=== PATIENT | female | born 1980 | race Caucasian/White ===

== ENCOUNTER 2016-08-11 17:29 | Emergency (ER) | payer BC ==
[2016-08-11 17:45] VITALS: BP 137/99; PULSE 98; TEMP 98.1; BMI 34.9
[2016-08-11] MEDS ORDERED: LIDOCAINE HCL 1%, 10 MG/ML (50 mL VIAL) SQ ONE (18:11)
[2016-08-11] MEDS ORDERED: LIDOCAINE HCL 1%, 10 MG/ML (20ML VIAL) ONE (18:15)
--- NOTE | 2016-08-11 18:38 | PDOC ---
History of Present Illness - History of Present Illness Initial Comments: 08/11/16 18:44 Patient is a 36 year old female (22 weeks) who is presenting to the ED for left toe injury. Today the patient was wearing sandals when she stubbed her first toe against a shopping cart. The patient reports an abrasion to her toe that began bleeding and has not stopped since. She also notes that the skin color around the injured area has darkened. The patient cleaned the wound and wrapped it in a bandage. She came to the ED today for continuous bleeding. NKDA. <Shaina Golden - Last Filed: 08/11/16 18:47> - General History Source: Patient Exam Limitations: No Limitations <Sudeep Rivas - Last Filed: 08/11/16 19:08> - General Chief Complaint: Injury Stated Complaint: left first toe injury Time Seen by Provider: 08/11/16 17:33 Past History <Shaina Golden - Last Filed: 08/11/16 18:47> - Past Medical History Other medical history: 5 months - Psycho/Social/Smoking Cessation Hx Anxiety: No Suicidal Ideation: No Smoking History: Never smoked Have you smoked in the past 12 months: No Information on smoking cessation initiated: No Hx Alcohol Use: No Drug/Substance Use Hx: No Substance Use Type: None <Sudeep Rivas - Last Filed: 08/11/16 19:08> - Past Medical History Allergies/Adverse Reactions: Allergies Allergy/AdvReac Type Severity Reaction Status Date / Time No Known Allergies Allergy Verified 08/11/16 17:30 Home Medications: Ambulatory Orders NK [No Known Home Medication] 08/11/16 Review of Systems - Review of Systems Comments:: 08/11/16 18:44 GENERAL/CONSTITUTIONAL: No fever or chills. No weakness. HEAD, EYES, EARS, NOSE AND THROAT: No change in vision. No ear pain or discharge. No sore throat. CARDIOVASCULAR: No chest pain or shortness of breath. RESPIRATORY: No cough, wheezing, or hemoptysis. GASTROINTESTINAL: No nausea, vomiting, diarrhea or constipation. GENITOURINARY: No dysuria, frequency, or change in urination. MUSCULOSKELETAL: No joint or muscle swelling or pain. No neck or back pain. EXTREMITIES: Abrasion with bleeding and skin color change to the left first toe. SKIN: No rash NEUROLOGIC: No headache, vertigo, loss of consciousness, or change in strength/ sensation. <Shaina Golden - Last Filed: 08/11/16 18:47> *Physical Exam - Vital Signs Last Vital Signs Temp Pulse Resp BP Pulse Ox 98.1 F 98 H 20 137/99 99 08/11/16 17:29 08/11/16 17:29 08/11/16 17:29 08/11/16 17:29 08/11/16 17:29 - Physical Exam Comments: 08/11/16 18:45 GENERAL: Awake, alert, and fully oriented, in no acute distress HEAD: No signs of trauma EYES: PERRLA, EOMI, sclera anicteric, conjunctiva clear ENT: Auricles normal inspection, hearing grossly normal, nares patent, oropharynx clear without exudates. Moist mucosa NECK: Normal ROM, supple, no lymphadenopathy, JVD, or masses LUNGS: Breath sounds equal, clear to auscultation bilaterally. No wheezes, and no crackles HEART: Regular rate and rhythm, normal S1 and S2, no murmurs, rubs or gallops ABDOMEN: Soft, nontender, normoactive bowel sounds. No guarding, no rebound. No masses EXTREMITIES: Subungal hematoma of the first digit of the left foot, no tenderness, no bony point tenderness, small superficial abrasion to the medial first toe. Normal range of motion, no edema. No clubbing or cyanosis. No cords NEUROLOGICAL: Cranial nerves II through XII grossly intact. Normal speech, normal gait SKIN: Warm, Dry, normal turgor, no rashes or lesions noted. ENDOCRINE: No increased thirst. No abnormal weight change. HEMATOLOGIC/LYMPHATIC: No anemia, easy bleeding, or history of blood clots. ALLERGIC/IMMUNOLOGIC: No hives or skin allergy. <Shaina Golden - Last Filed: 08/11/16 18:47> - Vital Signs Last Vital Signs Temp Pulse Resp BP Pulse Ox 98.1 F 98 H 20 137/99 99 08/11/16 17:29 08/11/16 17:29 08/11/16 17:29 08/11/16 17:29 08/11/16 17:29 <Sudeep Rivas - Last Filed: 08/11/16 19:08> Procedures - Nail Trephination Nail Trephination Location: 1st right toe Method of Drainage: 18 gauge needle Finger Splint: No <Sudeep Rivas - Last Filed: 08/11/16 19:08> Medical Decision Making - Medical Decision Making 08/11/16 19:03 A portion of this note was documented by scribe services under my direction. I have reviewed the details of the note, within reason, and agree with the documentation with the following case summary and management plan written by me. Patient treated in the ED. Nursing notes are reviewed and incorporated into the medical decision-making. Vital signs reviewed. Peripheral IV access obtained by the nurse, laboratory studies are drawn and sent, reviewed and interpreted by myself. Vital Signs Temp Pulse Resp BP Pulse Ox 98.1 F 98 H 20 137/99 99 08/11/16 17:29 08/11/16 17:29 08/11/16 17:29 08/11/16 17:29 08/11/16 17:29 36-year-old female approximately 22 weeks presents with first toe right foot subungual hematoma. Patient had actually stubbed her toe on the wall. She started developing subungual hematoma. She has small abrasion to the medial side of her toe. Denies bony tenderness. I have little to no suspicion for a fracture. However, patient several hematoma need to be dealt with. Lidocaine 1% without epinephrine was given for local digital block. This is a category B drug. The wound was soaked for approximately 30 minutes in a Betadine solution with normal saline. With approximately 4 mL of lidocaine, patient's toe was anesthetized. With an 18- gauge needle, the seminal hematoma successfully evacuated. Patient's wound was covered with gauze and wrapped in Kerlix. Wound precautions were given. Patient verbalizes understanding agrees with plan. I discussed the physical exam findings, ancillary test results and final diagnoses with the patient. I answered all of the patient's questions. The patient was satisfied with the care received and felt comfortable with the discharge plan and treatment plan. The patient will call their primary care physician within 24 hours to arrange follow-up and will return to the Emergency Department with any new, persistant or worsening symptoms. <Sudeep Rivas - Last Filed: 08/11/16 19:08> *DC/Admit/Observation/Transfer - Attestations Scribe Attestion: 08/11/16 18:46 Documentation prepared by Shaina Golden, acting as medical art therapist for Sudeep Rivas MD. <Shaina Golden - Last Filed: 08/11/16 18:47> - Discharge Dispostion Admit: No <Sudeep Rivas - Last Filed: 08/11/16 19:08> Diagnosis at time of Disposition: Subungual hematoma - Discharge Dispostion Disposition: HOME Condition at time of disposition: Improved - Patient Instructions Additional Instructions: You have had a subungal hematoma drained. Please elevate the foot as much as you can. Take 650 mg tylenol every 4 hours as needed for pain. You may start washing your toe starting tomorrow. If you notice any redness, fever, or pus at the toe, please return to the ER for further evaluation.
== END 2016-08-11 19:16 | disposition home or self-care (01) ==
LOC: FER 17:29
PROC: 0H9RXZZ Drainage of Toe Nail, External Approach (ICD-10-PCS; principal; 2016-08-11)
DX: O26.892 Other specified pregnancy related conditions, second trimester (principal); S90.111A Contusion of right great toe without damage to nail, initial encounter; W22.8XXA Striking against or struck by other objects, initial encounter; Y93.9 Activity, unspecified; Y92.9 Unspecified place or not applicable
CPT/HCPCS: 99282-25

== ENCOUNTER 2016-11-30 11:39 | Inpatient (IN) | payer BC ==
[2016-11-30] MEDS: ELECTROLYTE-148 SOLN 1,000 ML IV SCH ×2 (11:39→18:12)
[2016-11-30] MEDS ORDERED: TUBERCULIN PPD 5 TU/0.1ML SYRINGE (IN PATIENT USE ONLY) ID ONE (12:04)
[2016-11-30 12:23] VITALS: BMI 36.7
[2016-11-30 12:35] LABS: BASOPHIL 0.6 % (0-2.0); EOSINOPHIL 0.4 % (0-4.5); MCH 26.2 pg (25.7-33.7); MCHC 32.7 g/dl (32.0-36.0); MEAN CELL VOLUME 80.2 fl (80-96); MEAN PLT VOLUME 7.9 fl (7.5-11.1); NEUTROPHILS 72.6 % (42.8-82.8); PLATELET COUNT 245 K/MM3 (134-434); RDW 13.7 % (11.6-15.6); WHITE BLOOD COUNT 7.8 K/mm3 (4.0-10.0)
[2016-11-30 12:40] LABS: URINE APPEARANCE CLOUDY; URINE BILIRUBIN NEGATIVE (NEGATIVE); URINE COLOR YELLOW; URINE GLUCOSE (UA) NEGATIVE (NEGATIVE); URINE KETONE NEGATIVE (NEGATIVE); URINE NITRITE NEGATIVE (NEGATIVE); URINE UROBILINOGEN NEGATIVE E.U./dl (0.2-1.0)
[2016-11-30 12:41] LABS: URINE BLOOD 1+ (NEGATIVE); URINE LEUK ESTERASE 2+ (NEGATIVE); URINE PROTEIN 2+ (NEGATIVE)
[2016-11-30 12:48] LABS: INR 0.85 (0.82-1.09); PROTHROMBIN TIME (PATIENT) 9.3 SEC (9.98-11.88)
[2016-11-30 12:49] LABS: URINE BACTERIA RARE /hpf (NONE SEEN); URINE MUCUS RARE; URINE RBC 106 /hpf (0-3); URINE WBC 51 /hpf (3-5); YEAST FEW
[2016-11-30 12:51] LABS: ACTIVATED PTT 26.9 SECONDS (26.9-34.4)
[2016-11-30 13:03] LABS: CALCIUM 8.5 mg/dL (8.5-10.1); COCKROFT - GAULT 206.6095; CREATININE 0.5 mg/dL (0.55-1.02)
[2016-11-30 13:41] LABS: URIC ACID 3.3 mg/dL (2.6-7.2)
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
[2016-11-30] MEDS ORDERED: OXYTOCIN 15 UNITS/ LR 250 ML 250 ML IVPB SCH (15:30)
[2016-11-30] MEDS ORDERED: BUTORPHANOL TARTRATE 1 MG/ML VIAL IVPB ONE (16:45)
[2016-11-30 19:16] LABS: ARTERIAL BLD GAS O2 SATURATION 68.6 % (90-98.9); ARTERIAL BLOOD GAS BASE EXCESS 1.1 meq/l (-2-2); ARTERIAL BLOOD GAS HCO3 26.7 meq/L (22-26); ARTERIAL BLOOD GAS PO2 31.5 mmHg (80-100); ARTERIAL BLOOD GAS pH 7.37 (7.35-7.45)
[2016-11-30] MEDS ORDERED: ACETAMINOPHEN 325 MG TABLET (FP) PO PRN (20:19)
[2016-11-30] MEDS ORDERED: ONDANSETRON 4 MG/2 ML VIAL IVPB PRN (20:19)
[2016-11-30] MEDS ORDERED: IBUPROFEN 600 MG TABLET (FP) PO PRN ×3 (20:19→20:33)
--- NOTE | 2016-11-30 20:27 | PN ---
Delivery - Delivery Section: Primary Type of Anesthesia: Epidural EBL (cc): 500 Delivery, Single - Stages of Labor Date 1st Stage Initiatied: 11/30/16 Date of Delivery: 11/30/16 Time of Delivery: 18:58 Date Placenta Delivered: 11/30/16 Time Placenta Delivered: 18:59 Placenta: Yes: Expressed - Condition of Infant Pipeline Construction Inspector/Innovation Analyst Present: Yes Infant Gender: Male Position: Right, OT - [place] Feeding Plan Initial Plan: Elected not to breastfeed exclusively throughout hospitalization Benefits of Exclusively reinforced: Yes Remarks - Remarks Remarks: After patient underwent epidural heart rate decelerated to 80-90s noted at 18:34 Patient was urged to OR at 18:50 for Stat c/s Skin Incision was made at 18:55 baby was delivered at 18:58 Placenta delivered at 18:59 Pediatricians present, APGARs 9/9, weight 5.5lb Cord around the neck x 2, tight EBL 500cc Fluids 1200cc UO 50cc
[2016-11-30] MEDS ORDERED: oxyCODONE HCL 5 MG TABLET PO PRN ×2 (20:33)
[2016-11-30] MEDS ORDERED: IBUPROFEN 800 MG/8 ML IJ IVPB PRN (20:33)
[2016-11-30] MEDS ORDERED: SIMETHICONE 80 MG TAB.CHEW (FP) PO PRN ×2 (20:33)
[2016-11-30] MEDS ORDERED: BENZOCAINE 28 GM HEMORRHOIDAL OINTMENT PR PRN (20:33)
[2016-11-30] MEDS ORDERED: METHYLERGONOVINE MALEATE 0.2 MG/1 ML AMP IM PRN ×2 (20:33)
[2016-11-30] MEDS ORDERED: BENZOCAINE 20% 57 GM BOTTLE TP PRN (20:33)
[2016-11-30] MEDS ORDERED: WITCH HAZEL 50% (TUCKS) 40 PAD/JAR PAD TP PRN (20:33)
[2016-11-30] MEDS ORDERED: DEXTROSE 5%-LACTATED RINGERS 1,000 ML IV SCH (20:45)
[2016-11-30] MEDS ORDERED: OXYTOCIN 20 UNITS in 0.9% NS 1,000 ML IV SCH (20:45)
[2016-11-30] MEDS: CLINDAMYCIN 600MG PREMIX IVPB 50 ML IVPB SCH (21:15)
[2016-11-30] MEDS: GENTAMICIN 80 MG PREMIXED IVPB 100 ML IVPB SCH (22:00)
[2016-12-01] MEDS ORDERED: CEFAZOLIN 1 GM/D5W 50 ML IVPB SCH (02:00)
[2016-12-01] MEDS: CEFAZOLIN 2 GM/D5W 50 ML IVPB SCH ×3 (03:00→18:15)
[2016-12-01] MEDS ORDERED: SIMETHICONE 40 MG/0.6 ML BOTTLE PO PRN (03:41)
[2016-12-01] MEDS: CLINDAMYCIN 600MG PREMIX IVPB 50 ML IVPB SCH ×2 (04:46→12:42)
[2016-12-01] MEDS: GENTAMICIN 80 MG PREMIXED IVPB 100 ML IVPB SCH ×3 (05:45→21:27)
--- NOTE | 2016-12-01 07:14 | PN ---
Post Progress Note - Subjective Subjective: 36 yo P1 now s/p stat c/section, no complains, pain well controlled Post Day: 1 Type of Delivery: Primary C/S Vital Signs: Vital Signs Temperature 97.6 F 12/01/16 05:50 Pulse Rate 88 12/01/16 05:50 Respiratory Rate 20 12/01/16 06:00 Blood Pressure 121/79 12/01/16 05:50 O2 Sat by Pulse Oximetry (%) 98 11/30/16 20:25 Breast Exam: Yes: Soft Uterus: Yes: Fundus Firm Incision: Yes: Dressing dry and intact Abdomen/GI: Yes: Abdomen soft Lochia: Yes: Rubra Lochia, amount: Small Perineum: Yes: Intact Activity: Other (in bed) - Labs Labs: CBC WBC 7.8 K/mm3 (4.0-10.0) 11/30/16 12:24 RBC 4.31 M/mm3 (3.60-5.2) 11/30/16 12:24 Hgb 11.3 GM/dL (10.7-15.3) 11/30/16 12:24 Hct 34.5 % (32.4-45.2) 11/30/16 12:24 MCV 80.2 fl (80-96) 11/30/16 12:24 MCHC 32.7 g/dl (32.0-36.0) 11/30/16 12:24 RDW 13.7 % (11.6-15.6) 11/30/16 12:24 Plt Count 245 K/MM3 (134-434) 11/30/16 12:24 MPV 7.9 fl (7.5-11.1) 11/30/16 12:24 Neutrophils % 72.6 % (42.8-82.8) 11/30/16 12:24 Lymphocytes % 19.0 % (8-40) 11/30/16 12:24 Monocytes % 7.4 % (3.8-10.2) 11/30/16 12:24 Eosinophils % 0.4 % (0-4.5) 11/30/16 12:24 Basophils % 0.6 % (0-2.0) 11/30/16 12:24 Retic Count 1.48 % (0.5-1.5) 11/30/16 12:24 Assessment/Plan 36 yo P1 s/p Stat c/section for NRFHR VSS, Afibrile adequate Urine output follow labs today Encourage Out of bed cont routine post care Baby boy for Circumcision
[2016-12-01] MEDS: ACETAMINOPHEN 650 MG/20.3 ML ORAL SOLUTION (CUPS) PO PRN ×3 (07:54→21:27)
[2016-12-01] MEDS: IBUPROFEN 100 MG/5 ML UNIT DOSE CUPS PO PRN ×3 (07:55→21:27)
[2016-12-01] MEDS: PRENATAL VITAMINS W/ FOLIC ACID TABLET (FP) PO SCH (10:16)
--- NOTE | 2016-12-01 13:52 | PN ---
Progress Note (short form) - Note Progress Note: Anesthesia postop note 36 y/o F s/p spinal anesthesia for c/s, duramorph for postop pain management POD#1, vss, no complaints, pain well controlled, ambulating. No anesthesia complications.
--- NOTE | 2016-12-01 15:42 | OP ---
DATE OF OPERATION: PROCEDURE: STAT primary low-segment transverse . PREOPERATIVE DIAGNOSIS: 1. 36-year-old para 0 at 37 weeks with ruptured membranes, undergoing induction of labor with non-reassuring heart rate. POSTOPERATIVE DIAGNOSIS:. 1. 36-year-old para 0 at 37 weeks with ruptured membranes, undergoing induction of labor with non-reassuring heart rate. 2. Tight cord around the neck x 2. SURGEON: Arianna Villasenor MD. TORCH STRAIGHTENER AND HEATER: Michelle Jackson MD. DESCRIPTION OF THE OPERATIVE PROCEDURE: After patient underwent epidural anesthesia, the heart rate deceleration to 80s and 90s were noted at 1834 [employer] time, and heart rate was not recovering, so patient was urged to the operating room with patient's consent at 1854 STAT . A skin incision was made at 1855. Baby was delivered via Pfannenstiel skin incision and lower segment transverse uterine incision at 1858. Placenta was delivered at 1859. Pediatricians were present. Very tight cord around the neck x 2 was noted. Apgars were 9 and 9. Baby weighed 5 pounds, 5 ounces. Subsequently, uterus was cleared of clots and debris, and a uterine incision was repaired with 0 Biosyn with running locking suture and subsequently imbricating suture. Abdomen was cleared of clots and debris. Excellent uterine hemostasis was noted, and uterus was closed with 0 Biosyn in running fashion. The muscle was reapproximated in the midline. The fascia was closed with 0 Vicryl in running fashion. The subcutaneous was reapproximated with 2-0 Chromic, and skin was closed with 3-0 Biosyn. Estimated blood loss was 500 mL. Patient received 1200 mL of fluid. Urine output was 50 mL. Instrument/sponge count was correct x 2. Patient was brought to the recovery room in stable condition. Ophelia [id number] MTDD
[2016-12-01] MEDS: ELECTROLYTE-148 SOLN 1,000 ML IV SCH (18:15)
[2016-12-01] MEDS ORDERED: BISACODYL 10 MG SUPP.RECT PR PRN (20:34)
[2016-12-01] MEDS ORDERED: BISACODYL 10 MG SUPP.RECT RC PRN (20:34)
[2016-12-02] MEDS: CEFAZOLIN 2 GM/D5W 50 ML IVPB SCH ×2 (02:34→10:09)
[2016-12-02] MEDS: GENTAMICIN 80 MG PREMIXED IVPB 100 ML IVPB SCH (05:41)
[2016-12-02] MEDS: IBUPROFEN 100 MG/5 ML UNIT DOSE CUPS PO PRN ×3 (07:28→21:49)
[2016-12-02] MEDS: ACETAMINOPHEN 650 MG/20.3 ML ORAL SOLUTION (CUPS) PO PRN ×3 (07:28→21:50)
[2016-12-02 12:45] LABS: BASOPHIL 0.5 % (0-2.0); EOSINOPHIL 0.9 % (0-4.5); MCH 26.8 pg (25.7-33.7); MEAN PLT VOLUME 8.3 fl (7.5-11.1); NEUTROPHILS 78.7 % (42.8-82.8); PLATELET COUNT 235 K/MM3 (134-434); RDW 14.4 % (11.6-15.6); WHITE BLOOD COUNT 8.3 K/mm3 (4.0-10.0)
[2016-12-02] MEDS: PRENATAL VITAMINS W/ FOLIC ACID TABLET (FP) PO SCH (13:21)
--- NOTE | 2016-12-02 15:30 | PN ---
Post Progress Note - Subjective Subjective: 36 yo P0 s/p Stat c/section feels well, pain controlled, voiding, ambulating, eating regular diet, +flatus Denies Headache, visual changes Post Day: 2 Type of Delivery: Primary C/S Vital Signs: Vital Signs Temperature 98.7 F 12/02/16 10:00 Pulse Rate 87 12/02/16 10:00 Respiratory Rate 20 12/02/16 10:00 Blood Pressure 126/76 12/02/16 10:00 O2 Sat by Pulse Oximetry (%) 98 11/30/16 20:25 Breast Exam: Yes: Soft (not breast feeding) Uterus: Yes: Fundus Firm Incision: Yes: Sutures intact Abdomen/GI: Yes: Abdomen soft Lochia: Yes: Rubra Lochia, amount: Small Perineum: Yes: Intact Activity: Ambulating - Labs Labs: CBC WBC 8.3 K/mm3 (4.0-10.0) 12/02/16 12:05 RBC 3.91 M/mm3 (3.60-5.2) 12/02/16 12:05 Hgb 10.5 GM/dL (10.7-15.3) L 12/02/16 12:05 Hct 31.7 % (32.4-45.2) L 12/02/16 12:05 MCV 81.0 fl (80-96) 12/02/16 12:05 MCHC 33.0 g/dl (32.0-36.0) 12/02/16 12:05 RDW 14.4 % (11.6-15.6) 12/02/16 12:05 Plt Count 235 K/MM3 (134-434) 12/02/16 12:05 MPV 8.3 fl (7.5-11.1) 12/02/16 12:05 Neutrophils % 78.7 % (42.8-82.8) 12/02/16 12:05 Lymphocytes % 13.5 % (8-40) D 12/02/16 12:05 Monocytes % 6.4 % (3.8-10.2) 12/02/16 12:05 Eosinophils % 0.9 % (0-4.5) D 12/02/16 12:05 Basophils % 0.5 % (0-2.0) 12/02/16 12:05 Retic Count 1.48 % (0.5-1.5) 11/30/16 12:24 Haptoglobin 156 mg/dL (34-200) 11/30/16 12:24 Assessment/Plan 36 yo P1 s/p Stat c/section for NRFHR VSS, Afibrile adequate Urine output H/H stable BPs wnl Encourage Out of bed cont routine post care Rh pos, no need for RhoGam Baby boy circumcised Plan d/c 12/03/16
[2016-12-02] MEDS ORDERED: ENOXAPARIN NA (PORCINE) 40 MG/0.4 ML DISP.SYRIN SQ ONE (15:57)
[2016-12-02] MEDS: ENOXAPARIN NA (PORCINE) 40 MG/0.4 ML DISP.SYRIN SQ SCH (18:45)
[2016-12-02] MEDS ORDERED: SENNOSIDES/DOCUSATE COMBO (SENNA PLUS) TABLET (UD) PO PRN (22:00)
[2016-12-03] MEDS: ACETAMINOPHEN 650 MG/20.3 ML ORAL SOLUTION (CUPS) PO PRN ×3 (03:20→23:13)
[2016-12-03] MEDS: IBUPROFEN 100 MG/5 ML UNIT DOSE CUPS PO PRN ×4 (03:21→23:15)
[2016-12-03] MEDS: ENOXAPARIN NA (PORCINE) 40 MG/0.4 ML DISP.SYRIN SQ SCH (09:19)
[2016-12-03] MEDS: PRENATAL VITAMINS W/ FOLIC ACID TABLET (FP) PO SCH (09:19)
--- NOTE | 2016-12-03 15:15 | PATH ---
Surgical Pathology Report Patient Name: KRISTIN KING Med. Rec. #: [id number] /Age/Gender: 1980 (Age: 36) / F Account: [id number] Location: [facility] OBS/LICENSED DIRECT ENTRY MIDWIFE Taken: 11/30/2016 Received: 12/01/2016 Reported: 12/03/2016 Physicians: Arianna Villasenor M.D. Specimen(s) Received PLACENTA Clinical History , 2004-sx left shoulder Primary c/section-nonreassuring heart rate Final Diagnosis PLACENTA, DELIVERY: INTACT, SMALL (<400 GM), THIRD TRIMESTER PLACENTA WITH MILD PREVILLOUS, PERIVILLOUS, AND PRECHORIONIC FIBRIN DEPOSITION, THREE VESSEL UMBILICAL CORD, AND PLACENTAL MEMBRANES WITH FOCAL ACUTE CHORIOAMNIONITIS AND FOCAL AMNION HYPERPLASIA. Electronically Signed Justin Laws M.D. Gross Description The specimen is received fresh, labeled "placenta" and is a 229 gram, 13.5 x 11.5 x 1.3 cm placenta with attached membranes and umbilical cord. The attached membranes are dominique, translucent with focal opacities and insert marginally. The umbilical cord measures 12 cm in length and averages 0.9 cm in diameter. The cord inserts eccentrically, 1.5 cm to the nearest margin. No true knots or strictures are identified. Cut surface of the umbilical cord reveals 3 vessels. The surface is francisco-blue with fibrin deposition and appropriate caliber vessels. The maternal surface is red-brown and intact. Sectioning reveals red-brown, spongy parenchyma. No focal lesions are identified. Meter Reader Inspector sections are submitted in three cassettes as follows: 1- membrane rolls and umbilical cord; 2-3- full thickness sections of placenta. /12/02/2016 formerly [facility]12/02/2016
--- NOTE | 2016-12-03 17:12 | PN ---
Post Progress Note - Subjective Subjective: No complaints, some incisional pain, (+) flatus Post Day: 3 Type of Delivery: Primary C/S Vital Signs: Vital Signs Temperature 97.9 F 12/03/16 09:33 Pulse Rate 79 12/03/16 09:33 Respiratory Rate 18 12/03/16 09:33 Blood Pressure 140/90 12/03/16 09:33 O2 Sat by Pulse Oximetry (%) 98 11/30/16 20:25 Breast Exam: Yes: Soft Uterus: Yes: Fundus Firm, Fundus below umbilicus, Non-tender Incision: Yes: Sutures intact Abdomen/GI: Yes: Abdomen soft, Tolerating PO Lochia: Yes: Rubra Lochia, amount: Small Extremities: Yes: Calves non-tender, Edema Perineum: Yes: Intact Activity: Ambulating - Labs Labs: CBC WBC 8.3 K/mm3 (4.0-10.0) 12/02/16 12:05 RBC 3.91 M/mm3 (3.60-5.2) 12/02/16 12:05 Hgb 10.5 GM/dL (10.7-15.3) L 12/02/16 12:05 Hct 31.7 % (32.4-45.2) L 12/02/16 12:05 MCV 81.0 fl (80-96) 12/02/16 12:05 MCHC 33.0 g/dl (32.0-36.0) 12/02/16 12:05 RDW 14.4 % (11.6-15.6) 12/02/16 12:05 Plt Count 235 K/MM3 (134-434) 12/02/16 12:05 MPV 8.3 fl (7.5-11.1) 12/02/16 12:05 Neutrophils % 78.7 % (42.8-82.8) 12/02/16 12:05 Lymphocytes % 13.5 % (8-40) D 12/02/16 12:05 Monocytes % 6.4 % (3.8-10.2) 12/02/16 12:05 Eosinophils % 0.9 % (0-4.5) D 12/02/16 12:05 Basophils % 0.5 % (0-2.0) 12/02/16 12:05 Retic Count 1.48 % (0.5-1.5) 11/30/16 12:24 Haptoglobin 156 mg/dL (34-200) 11/30/16 12:24 Assessment/Plan 36yo P1 s/p primary LT C/S, doing well stable, afebrile. Mild elevation in BP noted. No s/sx of PEC. Will monitor care instructions reviewed. Continue routine postop care. Ambulation encouraged.
[2016-12-03] MEDS ORDERED: ACETAMINOPHEN 650 MG/20.3 ML ORAL SOLUTION (CUPS) PO ONE (18:30)
[2016-12-03] MEDS ORDERED: diphenhydrAMINE HCL 12.5 MG/5 ML UNIT-DOSE CUPS PO PRN (21:22)
[2016-12-04] MEDS: ACETAMINOPHEN 650 MG/20.3 ML ORAL SOLUTION (CUPS) PO PRN ×3 (06:09→20:09)
[2016-12-04] MEDS: IBUPROFEN 100 MG/5 ML UNIT DOSE CUPS PO PRN (06:10)
--- NOTE | 2016-12-04 09:15 | DS ---
Physical Exam-LAND RECLAMATION SPECIALIST Vital Signs: Vital Signs Temperature 98.2 F 12/03/16 22:00 Pulse Rate 80 12/04/16 05:39 Respiratory Rate 18 12/04/16 05:39 Blood Pressure 153/71 12/04/16 05:39 O2 Sat by Pulse Oximetry (%) 98 11/30/16 20:25 Constitutional: Yes: No Distress, Calm, Obese Eyes: Yes: WNL, Conjunctiva Clear HENT: Yes: WNL, Atraumatic, Normocephalic Neck: Yes: WNL, Supple, Trachea Midline Cardiovascular: Yes: WNL, Regular Rate and Rhythm Respiratory: Yes: WNL, Regular, CTA Bilaterally Gastrointestinal: Yes: WNL, Normal Bowel Sounds, Soft Renal/: Yes: WNL External Genitalia: Yes: Normal ....Post : Yes: Uterus firm, Uterus non-tender Breast(s): Yes: WNL Musculoskeletal: Yes: WNL Extremities: Yes: WNL Integumentary: Yes: WNL Wound/Incision: Yes: Clean/Dry, Well Approximated, Sutures Intact, Open to air Neurological: Yes: WNL, Alert, Oriented ...Motor Strength: WNL Psychiatric: Yes: WNL, Alert, Oriented Labs: CBC, BMP 12/02/16 12:05 11/30/16 12:24 Delivery - Delivery Section: Primary Type of Anesthesia: Epidural Episiotomy/Laceration: None EBL (cc): 500 Delivery, Single - Stages of Labor Date 1st Stage Initiatied: 11/30/16 Time 1st Stage Initiated: 11:00 Date of Delivery: 11/30/16 Time of Delivery: 18:58 Time Placenta Delivered: 18:59 Placenta: Yes: Expressed - Condition of Infant Camp Maintenance Supervisor/Pet Caregiver Present: Yes Infant Gender: Male Weight: 2.41 kg Position: Right, OT Total Hours ROM (Hrs/Mins): 8h 14m - 1 Minute Total Score: 9 5 Minutes Total Score: 9 - Feeding Plan Initial Plan: Elected not to breastfeed exclusively throughout hospitalization Benefits of Exclusively reinforced: Yes Remarks - Remarks Remarks: 36yo P1 s/p primary LT C/S, doing well stable, afebrile. Elevated BP noted. No s/sx of PEC. Will start on Procardia XL. care instructions reviewed. Continue routine postop care. Ambulation encouraged. Discharge Summary Reason For Visit: LABOR ASSES Current Active Problems delivery delivered (Acute) Condition: Good - Instructions Diet, Activity, Other Instructions: Physical activity Resume your normal everyday activity as tolerated no heavy lifting or exercise until seen by your surgeon. You may walk unlimited jelani of and climb stairs. You may resume driving the car when you feel safe and comfortable behind the wheel. No sexual activity as instructed. Wound care If you have a bandage, leave it on, and keep dry for 48-72 hours. After that time discard the outer bandage. If they are tapes on the skin under the out of bandage leave them in place. They will peel off in the next 7 to 10 days. Do Not Peel them off. You may shower the day after surgery. If there are tapes present on the skin, you may shower over them. Diet There are no dietary restrictions. Eat healthy, high-fiber foods. Drink 6 to 8 glasses of liquid each day. This will assist in keeping your bowels are regular. Pain management You may take Tylenol or acetaminophen or Ibuprofen (for example, Motrin, Advil etc.) from my pain prescription medication is ordered should be taken as prescribed for moderate to severe pain. Call MD for any of the following: Severe pain not relieved by medication Fever of 101 or higher Excessive bleeding or drainage on dressing Inability to urinate Referrals: Landen Quinteros MD [Staff Physician] - Disposition: HOME - Home Medications Comprehensive Discharge Medication List: Ambulatory Orders Vits #93/Iron Fum/FA [ Formula Tablet] 1 each PO DAILY Nifedipine ER [Procardia Xl -] 30 mg PO DAILY #30 tab.er.24 12/04/16 Nifedipine [Procardia Xl] 30 mg PO DAILY 30 Days 12/04/16 Nifedipine [Procardia Xl] 30 mg PO DAILY 30 Days 12/04/16
[2016-12-04] MEDS: ENOXAPARIN NA (PORCINE) 40 MG/0.4 ML DISP.SYRIN SQ SCH (09:23)
[2016-12-04] MEDS: PRENATAL VITAMINS W/ FOLIC ACID TABLET (FP) PO SCH (09:23)
[2016-12-04] MEDS: NIFEdipine E.R. 30 MG TABLET (FP) PO SCH (09:23)
[2016-12-04 13:02] LABS: URINE APPEARANCE CLEAR; URINE BILIRUBIN NEGATIVE (NEGATIVE); URINE COLOR YELLOW; URINE GLUCOSE (UA) NEGATIVE (NEGATIVE); URINE KETONE NEGATIVE (NEGATIVE); URINE NITRITE NEGATIVE (NEGATIVE); URINE PROTEIN NEGATIVE (NEGATIVE); URINE UROBILINOGEN 2.0 E.U/dl E.U./dl (0.2-1.0)
[2016-12-04 13:08] LABS: URINE BLOOD 2+ (NEGATIVE); URINE LEUK ESTERASE TRACE (NEGATIVE)
[2016-12-04 13:12] LABS: URINE RBC 250 /hpf (0-3); URINE WBC 175 /hpf (3-5)
[2016-12-04 13:13] LABS: CALCIUM OXALATE CRYSTALS RARE /hpf (NONE SEEN); URINE MUCUS MANY; YEAST FEW
[2016-12-04 13:19] LABS: URINE CREATININE 66.2 mg/dL (20-320)
[2016-12-04 13:23] LABS: BASOPHIL 0.9 % (0-2.0); EOSINOPHIL 3.6 % (0-4.5); MCH 26.7 pg (25.7-33.7); MEAN CELL VOLUME 80.9 fl (80-96); PLATELET COUNT 298 K/MM3 (134-434); WHITE BLOOD COUNT 5.2 K/mm3 (4.0-10.0)
[2016-12-04 13:26] LABS: ALBUMIN 2.3 g/dl (3.4-5.0); ALK PHOS 160 U/L (45-117); ANION GAP 9 (8-16); BILIRUBIN,TOTAL 0.3 mg/dL (0.2-1.0); CALCIUM 8.7 mg/dL (8.5-10.1); CO2 27 mmol/L (21-32); COCKROFT - GAULT 206.6095; CREATININE 0.5 mg/dL (0.55-1.02); GLUCOSE,RANDOM 92 mg/dL (74-106); SGOT/AST 33 U/L (15-37); SGPT/ALT 21 U/L (12-78); TOT PROT 6.5 g/dl (6.4-8.2); URIC ACID 2.6 mg/dL (2.6-7.2)
[2016-12-04 13:42] LABS: INR 0.93 (0.82-1.09); PROTHROMBIN TIME (PATIENT) 10.2 SEC (9.98-11.88)
--- NOTE | 2016-12-04 15:20 | CONSULT ---
Consult - text type - Consultation Consultation Note: Renal Consult for Hypertension This is a 36 year old woman with remote history of hypertension (previously on meds) who presented at 37 weeks gestation with ROM and now s/p with hypertension. She reprots being on Lisinpril prior to her for hypertension for about 2 months and then was stopped. She does not her BP was noted to be high during the but was not on meds. Denies any abd pain, N/V/D, MURRY, confusion, lethargy,seizures. Was given procardia xl 30mg this am. Admission labs did not show any LFT abnormalities or low plts. No fever, chills , MURRY, chest pain, sob, N/V/D. + LE swelling. Was using ibuprofen for pain as inpatient. She gained 12 lbs during the . PMhx: as above Allergies: NKDA Family hx: Mother with HTN and Cardiomyopathy Social Hx: No T/A/D ROS:As per HPI Home Medications Medication Instructions Recorded Vits #93/Iron Fum/FA 1 each PO DAILY 11/30/16 [ Formula Tablet] Nifedipine ER [Procardia Xl -] 30 mg PO DAILY #30 tab.er.24 12/04/16 Nifedipine [Procardia Xl] 30 mg PO DAILY 30 Days 12/04/16 Nifedipine [Procardia Xl] 30 mg PO DAILY 30 Days 12/04/16 Vital Signs Temperature 98.0 F 12/04/16 09:51 Pulse Rate 86 12/04/16 11:48 Respiratory Rate 18 12/04/16 11:48 Blood Pressure 160/90 12/04/16 11:48 O2 Sat by Pulse Oximetry (%) 98 11/30/16 20:25 Intake & Output 12/01/16 12/02/16 12/03/16 12/04/16 23:59 23:59 23:59 23:59 Intake Total 1375 50 Output Total 3100 Balance -1725 50 Gen: NAD, awake and alert HEENT: NC/AT, MMM, No JVD CVS: RRR, No M/R Lungs: CTA, no rales And: soft, mild tenderness over incison site Ext: Trace to 1+ edema in the LE, no clubbing or cyanosis Neuro: no focal defects CBC, BMP 12/04/16 12:35 12/04/16 12:35 Laboratory Tests 11/30/16 12/04/16 12/04/16 12:24 12:20 12:20 Haptoglobin 156 AST ALT Alkaline Phosphatase Urine Protein Negative U Random Total Protein 29 H Urine Creatinine 66.2 12/04/16 12:35 Haptoglobin AST 33 D ALT 21 Alkaline Phosphatase 160 H Urine Protein U Random Total Protein Urine Creatinine Current Medications Acetaminophen (Tylenol Oral Solution -) 650 mg PO Q4H PRN PRN Reason: FEVER OR PAIN Last Admin: 12/04/16 06:09 Dose: 650 mg Bisacodyl (Dulcolax Suppository -) 10 mg RC PRN PRN PRN Reason: CONSTIPATION Diphenhydramine HCl (Benadryl Injection -) 25 mg IVPUSH Q4H PRN PRN Reason: Pruritis Last Admin: 12/01/16 22:16 Dose: 25 mg Diphenhydramine HCl (Benadryl Oral Solution -) 25 mg PO Q6H PRN PRN Reason: ALLERGIC REACTION/ITCHING Last Admin: 12/03/16 23:17 Dose: 25 mg Enoxaparin Sodium (Lovenox -) 40 mg SQ DAILY [facility] Last Admin: 12/04/16 09:23 Dose: 40 mg Ibuprofen (Motrin Oral Suspension -) 600 mg PO Q4H PRN PRN Reason: PAIN Last Admin: 12/04/16 06:10 Dose: 600 mg Methylergonovine Maleate (Methergine Injection -) 0.2 mg IM Q4H PRN PRN Reason: Excessive Bleeding (L&D) Nifedipine (Procardia Xl -) 30 mg PO DAILY [facility] Last Admin: 12/04/16 09:23 Dose: 30 mg Multivit/Folic Acid/Iron ( Vitamins (Sjr) -) 1 tab PO DAILY [facility] Last Admin: 12/04/16 09:23 Dose: 1 tab Simethicone (Mylicon Liquid -) 80 mg PO Q4H PRN PRN Reason: GAS A/P 36 year old woman with remote history of hypertension (previously on meds) who presented at 37 weeks gestation with ROM and now s/p with hypertension # Hypertension r/o Preeclampsia UA showed no protein but UPCR was 0.47 with is significant No LFT abnormalities or low plt count to suggest HELLP s/p Procardia xl 30mg this am goal BP prior to d/c is < 140/90 trend BP during the day today, if able to reach goal can d/c on procardia xl 30mg [facility] outpatient follow up next week avoid NSAIDs, Low salt diet for the time being. Thank you Will follow Jeffery Maxwell DO
[2016-12-04] MEDS ORDERED: LABETALOL HCL 200 MG TABLET (FP) PO PRN (17:48)
[2016-12-05] MEDS: ACETAMINOPHEN 650 MG/20.3 ML ORAL SOLUTION (CUPS) PO PRN ×2 (01:53→11:06)
[2016-12-05 08:15] VITALS: TEMP 98
[2016-12-05] MEDS ORDERED: LABETALOL HCL 100 MG TABLET (FP) PO PRN (09:08)
[2016-12-05] MEDS: ENOXAPARIN NA (PORCINE) 40 MG/0.4 ML DISP.SYRIN SQ SCH (09:18)
[2016-12-05] MEDS: PRENATAL VITAMINS W/ FOLIC ACID TABLET (FP) PO SCH (09:18)
[2016-12-05] MEDS ORDERED: LABETALOL HCL 100 MG TABLET (FP) PO ONE (11:00)
[2016-12-05] MEDS: NIFEdipine E.R. 30 MG TABLET (FP) PO SCH (11:36)
--- NOTE | 2016-12-05 12:22 | PN ---
Progress Note (short form) - Note Progress Note: Renal follow up for hypertension Pt seen and examined at the bedside no acute complaints started labetalol last night with improved BP no sob, chest pain, abd pain Vital Signs Temperature 98.0 F 12/05/16 07:55 Pulse Rate 84 12/05/16 10:25 Respiratory Rate 18 12/05/16 10:25 Blood Pressure 148/97 12/05/16 10:25 O2 Sat by Pulse Oximetry (%) 98 11/30/16 20:25 Intake & Output 12/02/16 12/03/16 12/04/16 12/05/16 23:59 23:59 23:59 23:59 Intake Total 50 Balance 50 Gen: NAD, awake and alert CVS: RRR, No M/R Lungs: CTA, no rales And: soft, mild tenderness over incison site Ext: Trace to 1+ edema in the LE, no clubbing or cyanosis CBC, BMP 12/04/16 12:35 12/04/16 12:35 A/P 36 year old woman with remote history of hypertension (previously on meds) who presented at 37 weeks gestation with ROM and now s/p with hypertension # Hypertension r/o Preeclampsia UA showed no protein but UPCR was 0.47 with is significant No LFT abnormalities or low plt count to suggest HELLP continue labetalol 200mg Q6h PRN for SBP > 140 or DBP > 90 if BP improved on current meds can d/c on Labetalol and follow up as an outpatient d/c [place] for now will monitor BP today Jeffery Maxwell DO
--- NOTE | 2016-12-05 13:37 | PN ---
Progress Note (short form) - Note Progress Note: ppd 5 doing well , no c/o ,no headache utrus firm, non tendr, no RUQ tenderness ext trace edema, DTR normal CBC, BMP 12/04/16 12:35 12/04/16 12:35 Last Vital Signs Temp Pulse Resp BP Pulse Ox 98.0 F 77 18 115/70 98 12/05/16 07:55 12/05/16 12:20 12/05/16 12:20 12/05/16 12:20 11/30/16 20:25 bp stable, plan d/c home on po labatalol , bd , follow up with renal 1 week, if dizziness , weakness ,headache call
[2016-12-05 14:29] VITALS: BP 128/85; PULSE 82
== END 2016-12-05 16:45 | disposition home or self-care (01) | DRG 766 ==
LOC: JDEL 11:39 → JLDR 11:40 → J3W 22:57
PROVIDERS: ADMIT Obstetrics & Gynecology; ATTEND Obstetrics & Gynecology
PROC: 10D00Z1 Extraction of Products of Conception, Low, Open Approach (ICD-10-PCS; principal; 2016-11-30)
DX: O76 Abnormality in fetal heart rate and rhythm complicating labor and delivery (principal); O69.1XX0 Labor and delivery complicated by cord around neck, with compression, not applicable or unspecified; O13.5 Gestational [pregnancy-induced] hypertension without significant proteinuria, complicating the puerperium; O99.214 Obesity complicating childbirth; E66.8 Other obesity; Z68.36 Body mass index [BMI] 36.0-36.9, adult; Z71.3 Dietary counseling and surveillance; Z3A.37 37 weeks gestation of pregnancy; Z37.0 Single live birth
CPT/HCPCS: 36415; 36600; 80048; 80053; 81003; 81015; 82570; 82803; 82977; 83010; 84156; 84450; 84460; 84550; 85025; 85044; 85610; 85730; 86593; 86850; 86900; 86901; 87086; 88307-TC

== ENCOUNTER 2022-02-01 15:07 | Emergency (ER) | payer OTHER ==
[2022-02-01 15:22] VITALS: BP 143/95; PULSE 81; TEMP 98.6; BMI 36.1
[2022-02-01] MEDS ORDERED: SODIUM CHLORIDE 0.9% 1000 ML INFUS.BAG IV ONE (15:34)
[2022-02-01 16:12] LABS: HEMATOCRIT 43.7 % (32.4-45.2); HEMOGLOBIN 14.7 G/dL (10.7-15.3); MCH 27.1 pg (25.7-33.7); MCHC 33.7 g/dl (32.0-36.0); MEAN CELL VOLUME 80.4 fl (80-96); MEAN PLT VOLUME 8.2 fl (7.5-11.1); PLATELET COUNT 240.9 10^3/uL (134-434); RBC 5.44 10^6/uL (3.60-5.2); RDW 14.9 % (11.6-15.6); WHITE BLOOD COUNT 5.1 10^3/uL (4.0-10.8)
[2022-02-01 16:16] LABS: ALBUMIN 3.9 g/dl (3.4-5.0); ALK PHOS 87 U/L (45-117); ANION GAP 7 MMOL/L (8-16); CALCIUM 9.1 mg/dl (8.5-10); CHLORIDE 101 mmol/L (98-107); CO2 26 mmol/L (21-32); CREATININE 0.7 mg/dl (0.55-1.3); GLUCOSE,RANDOM 85 mg/dl (74-106); SGOT/AST 29 U/L (15-37); SGPT/ALT 24 U/L (13-61); SODIUM 134 mmol/L (136-145); TOT PROT 7.7 g/dl (6.4-8.2)
== END 2022-02-01 16:47 | disposition home or self-care (01) ==
LOC: FER 15:07
DX: R60.0 Localized edema (principal)
CPT/HCPCS: 36415; 80053; 84484; 85025; 93005; 93308; 99285-25

== ENCOUNTER 2022-02-19 18:40 | Emergency (ER) | payer OTHER ==
[2022-02-19 19:02] VITALS: BP 134/73; PULSE 81; RESP 20; TEMP 98.4; BMI 36.3
== END 2022-02-19 20:25 | disposition home or self-care (01) ==
LOC: FER 18:40
DX: S46.912A Strain of unspecified muscle, fascia and tendon at shoulder and upper arm level, left arm, initial encounter (principal); X50.0XXA Overexertion from strenuous movement or load, initial encounter
CPT/HCPCS: 73030-TC-LT-FY; 99283-25

== ENCOUNTER 2023-08-22 15:28 | Emergency (ER) | payer OTHER ==
[2023-08-22] MEDS ORDERED: ACETAMINOPHEN 500 MG TABLET (FP) PO ONE (15:35)
[2023-08-22] MEDS ORDERED: KETOROLAC TROMETHAMINE 30 MG/1 ML VIAL IM ONE (15:35)
[2023-08-22 16:13] VITALS: BP 154/86; PULSE 90; RESP 18; TEMP 98.5; BMI 28.5
[2023-08-22] MEDS ORDERED: ACETAMINOPHEN 325 MG TABLET (FP) ONE (16:17)
[2023-08-22] MEDS ORDERED: KETOROLAC TROMETHAMINE 30 MG/1 ML VIAL ONE (16:17)
== END 2023-08-22 18:20 | disposition home or self-care (01) ==
LOC: FER 15:28
PROC: 0SSPXZZ Reposition Right Toe Phalangeal Joint, External Approach (ICD-10-PCS; principal; 2023-08-22)
PROC: 3E0233Z Introduction of Anti-inflammatory into Muscle, Percutaneous Approach (ICD-10-PCS; 2023-08-22)
DX: M79.674 Pain in right toe(s) (principal); S93.114A Dislocation of interphalangeal joint of right lesser toe(s), initial encounter; W22.8XXA Striking against or struck by other objects, initial encounter
CPT/HCPCS: 73630-TC-RT-FY; 73660-TC-FY; 99284-25

== ENCOUNTER 2024-02-03 20:04 | Emergency (ER) | payer OTHER, BC ==
[2024-02-03 20:25] VITALS: BP 140/92; PULSE 89; RESP 20; TEMP 98.8; BMI 28.3
== END 2024-02-03 21:36 | disposition home or self-care (01) ==
LOC: FER 20:04
PROC: 0SSPXZZ Reposition Right Toe Phalangeal Joint, External Approach (ICD-10-PCS; principal; 2024-02-03)
DX: S63.286A Dislocation of proximal interphalangeal joint of right little finger, initial encounter (principal); X50.9XXA Other and unspecified overexertion or strenuous movements or postures, initial encounter
CPT/HCPCS: 73660-TC-FY; 99283-25